=== PATIENT | male | born 1990 | race African-American/Black ===

== ENCOUNTER 2016-05-20 04:01 | Emergency (ER) | payer BC, OTHER ==
[~2016-05-20] VITALS: Ht 180.3 cm; Wt 77.3 kg
[~2016-05-20 04:01] MED LIST: BELL30LI; IBUP200C; LEVE250T66; RISP2TAB93; SIME1LIQ; [UNRECOGNIZED DRUG - CODE]
[2016-05-20] MEDS ORDERED: LEVETIRACETAM IV 500 MG in DEXTROSE 5% 100 ML IVPB ONE (04:30)
--- NOTE | 2016-05-20 04:30 | ERA ---
ER Documentation Chief Complaint Date/Time DATE: 05/20/16 TIME: 04:29 Chief Complaint Seizure HPI The patient is a 25-year-old male, presenting to the ER because of recurrent seizure that began about an hour ago, lasted for approximately 5-10 minutes, witnessed by his father. He has history of seizure but does not take any medication. He denies tongue bite, fecal, urinary incontinence. He was not postictal upon arrival to the ER. He denies headache, neck pain, chest pain, dyspnea, abdominal pain, vomiting, dysuria. He smokes and drinks and smoke marijuana Past medical history: Seizure disorder Past surgical history: Eye surgery ROS All systems reviewed and are negative except as per history of present illness. Medications Home Meds Reported Medications Simethicone (Simethicone) 1 Ml Liquid 08/25/10 Belladonna Alkaloids (Belladonna) 30 Mg/100 Ml Liquid 08/25/10 Ibuprofen* (Ibuprofen*) 200 Mg Capsule 08/25/10 Lactase (Lactaid) 1 Tab Tab 08/25/10 Risperidone* (Risperdal*) 2 Mg Tablet 08/25/10 Levetiracetam* (Keppra*) 250 Mg Tablet 08/25/10 [None] No Conflict Check 11/24/09 Allergies Allergies: Coded Allergies: No Known Drug Allergies (Verified Allergy, Unknown, 08/25/10) PMhx/Soc History of Surgery: Yes (EYE SX.) Anesthesia Reaction: No Hx Neurological Disorder: Yes (HX.M OF SEIZURES) Hx Respiratory Disorders: No Hx Cardiac Disorders: No Hx Psychiatric Problems: Yes (MOOD DISORDER, ADHD, MENTAL RETARDATION) Hx Miscellaneous Medical Probl: No Hx Alcohol Use: Yes Hx Substance Use: Yes Hx Tobacco Use: Yes Physical Exam Vitals Vital Signs Date Time Temp Pulse Resp B/P Pulse Ox O2 Delivery O2 Flow Rate FiO2 05/20/16 05:56 97.2 66 16 124/68 100 Room Air 05/20/16 04:37 96.9 71 16 115/59 100 Physical Exam Const: No acute distress. Head: Atraumatic. Eyes: Normal Conjunctiva. ENT: Normal External Ears, Nose and Mouth. Neck: Full range of motion. No meningismus. Resp: Clear to auscultation bilaterally. Cardio: Regular rate and rhythm, no murmurs. Abd: Soft, non distended, normal bowel sounds, non tender. Skin: No petechiae or rashes. Back: No midline or flank tenderness. Ext: No cyanosis, or edema. Neur: Awake and alert. No focal deficit Psych: Normal Mood and Affect. Result Diagram: 05/20/1642205/20/16422 Results 24 hrs Laboratory Tests Test 05/20/16 04:23 Anion Gap 19 Basophils # 0.010^3/ul Basophils % 0.4% Blood Morphology Comment Blood Urea Nitrogen 9mg/dl Calcium Level 9.1mg/dl Carbon Dioxide Level 26mmol/L Chloride Level 104mmol/L Creatinine 0.93mg/dl Eosinophils # 0.010^3/ul Eosinophils % 0.0% Glucose Level 107mg/dl Hematocrit 45.0% Hemoglobin 14.6g/dl Lymphocytes # 3.710^3/ul Lymphocytes % 51.5% Mean Corpuscular Hemoglobin 28.3pg Mean Corpuscular Hemoglobin Concent 32.4g/dl Mean Corpuscular Volume 87.5fl Mean Platelet Volume 7.9fl Monocytes # 0.610^3/ul Monocytes % 7.8% Neutrophils # 2.910^3/ul Neutrophils % 40.3% Nucleated Red Blood Cells # 0.010^3/ul Nucleated Red Blood Cells % 0.0/100WBC Platelet Count 90310^3/UL Potassium Level 4.0mmol/L Red Blood Count 5.1510^6/ul Red Cell Distribution Width 14.3% Sodium Level 145mmol/L White Blood Count 7.210^3/ul Current Medications Medications (Trade) Dose Ordered Sig/Carla Route PRN Reason Start Time Stop Time Status Last Admin Dose Admin Levetiracetam/ Dextrose (Keppra Iv/D5W) 105 ml @ 420 mls/hr ONCE ONCE IVPB 05/20/16 04:30 05/20/16 04:44 DC 05/20/16 04:42 Procedures/MDM MEDICAL MAKING DECISION: The patient is a 25-year-old male, presenting with acute recurrent seizure due to medical noncompliance. He was treated with Keppra 500 mg IV with good response. He was put on seizure precaution in the ER. The differential diagnoses considered include but are not limited to subarachnoid hemorrhage, occult trauma, CVA, meningitis, encephalitis, hypertension, tension, migraine, cluster, narcotic withdrawal, cervical spine disease. Departure Diagnosis: Primary Impression: Seizure disorder Condition: Good Comments He was discharged with Jose Roberto I discussed the findings with the patient. I advised the patient to follow-up with the primary physician in about 1-2 days, sooner if needed and return if any concern. The patient's blood pressure was elevated (>120/80) but appears stable without evidence of hypertension emergency or urgency. The patient was counseled about the risks of hypertension and urged to pursue outpatient monitoring and therapy within a week with their primary care physician. ROBERT HILTON MD May 20, 2016 04:29
[2016-05-20 04:37] VITALS: Ht 180.3 cm; Wt 77.3 kg
[2016-05-20 04:51] LABS: BASOPHILS % 0.4 % (0.0-2.0); HEMOGLOBIN 14.6 g/dl (14.0-18.0); LYMPHOCYTES # 3.7 10^3/ul (0.8-2.9); LYMPHOCYTES % 51.5 % (15.0-51.0); MEAN CORPUSCULAR HEMOGLOBIN 28.3 pg (29.0-33.0); MEAN CORPUSCULAR HGB CONC 32.4 g/dl (32.0-37.0); MEAN CORPUSCULAR VOLUME 87.5 fl (82.0-101.0); MEAN PLATELET VOLUME 7.9 fl (7.4-10.4); MONOCYTE # 0.6 10^3/ul (0.3-0.9); MONOCYTES % 7.8 % (0.0-11.0); NEUTROPHIL # 2.9 10^3/ul (1.6-7.5); NEUTROPHILS % 40.3 % (39.0-77.0); PLATELET COUNT 293 10^3/UL (140-440); RED BLOOD COUNT 5.15 10^6/ul (4.70-6.10); RED CELL DISTRIBUTION WIDTH 14.3 % (11.5-14.5); UNCORRECTED WBC 7.2 10^3/ul (4.8-10.8); WHITE BLOOD COUNT 7.2 10^3/ul (4.8-10.8)
[2016-05-20 04:53] LABS: CONDITION 1; LH ANALYZER COMMENTS 1
[2016-05-20 05:01] LABS: CALCIUM 9.1 mg/dl (8.4-10.2); CREATININE 0.93 mg/dl (0.61-1.24)
[2016-05-20 05:56] VITALS: BP 124/68; PULSE 66; RESP 16; TEMP 97.2
== END 2016-05-20 05:55 | disposition home or self-care (01) ==
LOC: E/R 04:01
DX: G40.909 Epilepsy, unspecified, not intractable, without status epilepticus (principal); F17.210 Nicotine dependence, cigarettes, uncomplicated
CPT/HCPCS: 36415; 80048; 85025; 96374; J1953; Z7502; Z7610